=== PATIENT | female | born 1970 ===

== ENCOUNTER 2017-08-05 17:02 | Observation (INO) ==
[2017-08-05] MEDS ORDERED: GLUCAGON 1 MG VIAL IM PRN (17:09)
[2017-08-05] MEDS ORDERED: DEXTROSE 50% 25 GM/50 ML VIAL IV PRN (17:09)
[2017-08-05] MEDS ORDERED: ACETAMINOPHEN 325 MG TABLET PO PRN (20:14)
[2017-08-05] MEDS ORDERED: ONDANSETRON 4 MG/2 ML VIAL IV PRN (20:14)
[2017-08-05] MEDS ORDERED: MORPHINE 4 MG/1 ML VIAL IV PRN (20:14)
[2017-08-05 20:21] LABS: Troponin I Only < 0.015 NG/ML (0.00-0.045)
[2017-08-05] MEDS ORDERED: NITROGLYCERIN SL 0.4 MG TABLET SL PRN (20:32)
[2017-08-05 20:53] LABS: Troponin I Only < 0.015 NG/ML (0.00-0.045)
[2017-08-05] MEDS ORDERED: ENOXAPARIN 40 MG/0.4 ML SYRINGE SUBCUT SCH (21:00)
[2017-08-05] MEDS: INSULIN LISPRO 100 UNIT/ML SUBCUT SCH (21:10)
[2017-08-06 00:19] LABS: Troponin I Only < 0.015 NG/ML (0.00-0.045)
[2017-08-06 04:53] LABS: Basophils # 0.1 10*3/uL (0.0-0.2); Eosinophils # 0.2 10*3/uL (0.0-0.87); Hematocrit 39.1 VOL% (35.7-47.0); Hemoglobin 13.5 GM/DL (12.0-16.0); Immature Granulocytes % 0.3 %; Immature Granulocytes Absolute 0.02 #; Lymphocytes # 3.6 10*3/uL (1.4-4.0); Lymphocytes % 46.5 % (21.3-54.2); Mean Corpuscular HGB Conc 34.5 GM/DL (32-36); Mean Corpuscular Hemoglobin 32 PG (27-34); Monocytes # 0.6 10*3/uL (0.11-0.8); Monocytes % 7.2 % (1.7-12.7); Neutrophils # 3.4 10*3/uL (1.4-7.4); Platelet Count 254 T/CUMM (130-400); Red Blood Count 4.25 MC/CUMM (3.8-5.5); Red Cell Distribution Width 12.7 % (9.3-17.3); White Blood Count 7.8 T/CUMM (4-12)
[2017-08-06 05:06] LABS: Calcium 8.6 MG/DL (8.5-10.1); Osmolality,Calculated 285.1 MOS/KG (273-304); Potassium 3.8 MMOL/L (3.5-5.1)
[2017-08-06 07:41] VITALS: BP 148/82
[2017-08-06] MEDS: INSULIN LISPRO 100 UNIT/ML SUBCUT SCH (08:09)
[2017-08-06] MEDS ORDERED: ASPIRIN 325 MG TABLET PO SCH (09:00)
== END 2017-08-06 12:43 | disposition home or self-care (01) ==
LOC: N.TELES → SUATTDRO 19:16
PROVIDERS: ADMIT Internal Medicine